=== PATIENT | male | born 1980 | race Caucasian/White ===

== ENCOUNTER 2020-10-17 15:06 | Emergency (ER) | payer OTHER, SELFPAY ==
[2020-10-17 16:00] VITALS: BP 127/85; PULSE 60; RESP 16; TEMP 36.9; O2SAT 98; BMI 28.5
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
[2020-10-17] MEDS: tetanus-diphtheria tox (adult) 0.5 mL SDV IM (16:40)
[2020-10-17] MEDS: eye irrigation 30 mL Btl EYE-BOTH ×2 (17:54)
[2020-10-17] MEDS: neomycin-poly-dex Op oint 3.5 gm 1 APPLIC EYE-BOTH (17:55)
[2020-10-17] MEDS: tetracaine 0.5% Op Soln 4 mL Btl 1 DROP EYE-BOTH (17:55)
[2020-10-17] MEDS: fluorescein 1 mg Strip EYE-BOTH ×2 (17:55)
[2020-10-17] MEDS: neomycin-poly-dex Op 5 mL Btl 2 DROP EYE-BOTH (17:56)
== END 2020-10-17 18:07 | disposition home or self-care (01) ==
PROVIDERS: Emergency Provider Nurse Practitioner Family; PCP Nurse Practitioner Family
DX: T15.90XA Foreign body on external eye, part unspecified, unspecified eye, initial encounter (principal); V89.2XXA Person injured in unspecified motor-vehicle accident, traffic, initial encounter; Z23 Encounter for immunization
CPT/HCPCS: 90471; 90714; 99283